=== PATIENT | female | born 2005 | race Caucasian/White ===

== ENCOUNTER 2025-01-06 18:25 | Emergency (ER) | payer BC, SELFPAY ==
[2025-01-06 18:27] VITALS: BP 134/87
--- NOTE | 2025-01-06 19:12 | ED.GENMED ---
History of Present Illness
General
Chief Complaint: Vaginal Bleeding
Source: patient
Exam Limitations: none
Nursing documentation reviewed up to this point in time: agreed with
Course
Vital Signs
Initial and Last Documented VS:
Initial Vital Signs
Temp Pulse Resp BP Pulse Ox
98.5 F 85 18 134/87 99
01/06/25 18:27 01/06/25 18:27 01/06/25 18:27 01/06/25 18:27 01/06/25 18:27
Last Documented Vital Signs
Temp Pulse Resp BP Pulse Ox
98.5 F 85 18 134/87 99
01/06/25 18:27 01/06/25 18:27 01/06/25 18:27 01/06/25 18:27 01/06/25 18:27
ED Attending Note
-
Portions of this chart may have been created with voice recognition software.� Occasional wrong word or��sound alike� substitutions may have occurred due to the inherent limitations of voice recognition software.
Discharge Plan
Interventions
Interventions:
*Risk Screen - Suicide Last Done: 01/06/25 18:27
*General Assessment Last Done: 01/06/25 18:27
*Neglect/Abuse Screening Last Done: 01/06/25 18:27
*ED COVID-19 Vaccine History Last Done: 01/06/25 18:27
Discharge Date and Time
Print Language: YEMENI
[2025-01-06 21:26] LABS: % Basophils 0.4 % (0-2); % Eosinophils 1.4 % (0-6); % Immature Granulocytes 0.3 % (0-0.5); % Lymphocytes 29.1 % (20.5-51.1); % Monocytes 8.4 % (1.7-9.3); % Neutrophils 60.4 % (42.2-75.2); Absolute Eosinophils 0.1 10^3/uL (0-0.7); Absolute Lymphocytes 2.1 10^3/uL (1.2-3.4); Absolute Monocytes 0.6 10^3/uL (0.1-0.6); Absolute Neutrophils 4.4 10^3/uL (1.4-6.5); Hematocrit 42.4 % (37.0-47.0); Hemoglobin 14.6 g/dL (12.0-16.0); Mean Corp Hgb Conc. 34.4 g/dL (33.0-37.0); Mean Corpuscular Hgb 29.2 pg (27.0-31.0); Mean Corpuscular Volume 84.8 fL (81.0-99.0); Mean Platelet Volume 12.5 fL (7.4-10.4); Nucleated Red Blood Cells % 0 %; Platelet Count 174 10^3/uL (130-400); Red Cell Dist. Width 13.2 % (11.5-14.5); White Blood Cell Count 7.2 10^3/uL (4.8-10.8)
[2025-01-06 21:36] LABS: HCG, Serum Qualitative Screen Negative
[2025-01-06 21:40] LABS: Blood Urea Nitrogen 10 mg/dl (7-17); Calcium 10.4 mg/dl (8.4-10.2); Carbon Dioxide 24 mmol/L (22-30); Chloride 106 mmol/L (98-107); Glucose 95 mg/dl (70-99); Potassium 4.1 mmol/L (3.5-5.1); Sodium 142 mmol/L (135-145); eGFR > 60.00
--- NOTE | 2025-01-06 21:59 | ED.GENMED ---
History of Present Illness
General
Chief Complaint: Vaginal Bleeding
Source: patient
Exam Limitations: none
Time Seen by Provider: 01/06/25 19:29
Nursing documentation reviewed up to this point in time: agreed with
History of Present Illness
History of Present Illness:
19-year-old female presenting to the emergency department for evaluation of vaginal bleeding. Patient states that she had a normal menstrual period which ended last week. However�2 to 3 days ago started bleeding again although this time it was
dark brown in color. She also reports feeling as if her IUD may be falling out. She has mild vaginal discomfort. No true abdominal pain. No fevers, vomiting, lightheadedness, shortness of breath.
Patient feels that she has been urinating more frequently. She was seen at a primary care this morning where a urinalysis performed. She was prescribed a dose to cover for possible UTI while culture is pending.
Patient said she has had a Kyleena IUD for the past 3 years. She follows [facility].
Patient is been sexually active with 1 partner for the past 3 years. No concern for STIs/STDs. LMP was last week.
Review of Systems
Review of Systems
Allergies reviewed?: Yes
All Other Systems: ROS reviewed and negative except as documented in HPI and ROS
Phy Exam
Physical Exam
Physical Exam:
Vitals: Patient's vital signs are stable. Afebrile
General: Patient is well appearing, no acute distress. Nontoxic appearing
Skin: Warm and dry, no rashes or lesions
Head: Normocephalic, atraumatic
Eyes: Sclera nonicteric. EOMs intact. No nystagmus.
Throat: Protecting airway
Neck: Normal ROM, no cervical spine tenderness, no meningismus
Cardiac: Regular rate and rhythm, no murmurs.
Pulm: Normal respiratory effort, no wheezes, rales, rhonchi heard on exam.
Abdomen: Abdomen soft. No abdominal tenderness.
Pelvic: External genitalia normal appearing without lesions, ulcerations, or adenopathy. Vaginal vault without lesions or ulcerations. Light brown discharge/minimal bleeding present in vagina. Cervix appears normal to inspection without bleeding or
lesions. No cervical motion tenderness. No visualized foreign body. Bimanual exam without palpable IUD or other foreign body.
Extremities: No evidence of cyanosis or edema
Neuro: AAOx3. Grossly intact.
Psychiatric: Normal affect.
Course
Orders/Labs/Results
Orders:
Orders
01/06/25 20:35
Test Result ONCE
US Pelvis W Transvag Combined Urgent
Reason For Exam: vaginal bleeding, pain; concern for migrated IUD
01/06/25 21:18
Basic Metabolic Panel Urgent
Complete Blood Count/With Diff Urgent
HCG, Serum Qualitative Screen Urgent
Abnormal Lab Results
01/06/25
21:18
MPV 12.5 H fL
(7.4-10.4)
Calcium 10.4 H mg/dl
(8.4-10.2)
01/06/25 21:18
01/06/25 21:18
Vital Signs
Initial and Last Documented VS:
Initial Vital Signs
Temp Pulse Resp BP Pulse Ox
98.5 F 85 18 134/87 99
01/06/25 18:27 01/06/25 18:27 01/06/25 18:27 01/06/25 18:27 01/06/25 18:27
Last Documented Vital Signs
Temp Pulse Resp BP Pulse Ox
98.2 F 74 18 118/86 98
01/06/25 23:35 01/06/25 23:35 01/06/25 23:35 01/06/25 23:35 01/06/25 23:35
MDM/Problems Addressed
Differential Diagnosis Includes:
Not limited to: Malpositioned IUD, PID, cervicitis, vaginitis, BV, UTI, etc.
MDM/Problems Addressed:
19-year-old female presenting with abnormal vaginal bleeding and mild pelvic pain for the past few days. No fevers, chills, abdominal pain, or vomiting. No concern for STDs/STIs. Vital stable on arrival. Patient is afebrile. Physical exam as
above. Patient very well-appearing, no apparent distress. Benign abdominal exam. Speculum and bimanual pelvic exam were performed which show minimal bleeding from cervical os without any cervical motion tenderness. No signs of cervicitis on
exam. No visualized or palpated IUD/foreign body in vaginal vault. Labs were obtained which show no clinically significant abnormalities. Hemoglobin is normal at 14.6. Pelvic ultrasound was obtained with concern of migrated IUD which shows
structure believed to be IUD in place in the lower uterine segment. Ultimately�suspect patient's symptoms likely secondary to malpositioned IUD. No evidence of ongoing infection. test was negative. Patient in no current discomfort and
stable for discharge home with close BUSINESS APPLICATIONS ANALYST follow-up outpatient. Patient does [facility]. Patient will start antibiotics as prescribed by PCP earlier today for possible UTI. Patient given copy of ultrasound report upon
discharge. Return precautions discussed including any signs of infection. Patient comfortable w/ plan.
Chronic conditions affecting care:
N/A
Acute Exacerbation and/or Progression of Chronic Illness:
N/A
*Radiology
Radiology exam reviewed: radiology read reviewed
*Pulse Oximetry
Patient hypoxic: no
*EKG
Interpreted by ED Provider?: NA
*Accounts Receivable Bookkeeper Interpretation
Rate: Accounts Receivable Bookkeeper- N/A
*Critical Care Note
Total Time (30-74mins, 75-104mins- exclusive of procedures): Not Applicable
ED Attending Note
-
Portions of this chart may have been created with voice recognition software.� Occasional wrong word or��sound alike� substitutions may have occurred due to the inherent limitations of voice recognition software.
Discharge Plan
Departure
Patient Disposition: Home (Routine Discharge)
Date of Disposition: 01/06/25
Time of Disposition: 23:18
Patient with high blood pressure during this ER visit?: Yes
Condition: Good
Covid-19: Not Applicable
Discharge Problem:
Abnormal vaginal bleeding, Malpositioned intrauterine device (IUD)
Instructions: Bleeding Between Periods
Referrals:
Greg Bernard MD [Active] - Next open appointment
Kimberly Smith MD [Family Provider] -
Activity Restrictions/Additional Instructions:
Return to the emergency department with any persistent heavy bleeding, fevers/chills, severe abdominal/pelvic pain, lightheadedness/dizziness, worsening current symptoms, or any other concern
-As discussed your hemoglobin was normal on your labs today. You had no elevated white blood cell count. Your pelvic ultrasound did show your IUD in the uterus although it may be malpositioned. Your IUD may not be effective right now as it may be
malpositioned�you should abstain from unprotected sex until seen by BUSINESS APPLICATIONS ANALYST.
-You can take Tylenol and/or Motrin as needed for discomfort.
-As discussed�is important you follow-up with your BUSINESS APPLICATIONS ANALYST as soon as possible for further evaluation/management. You may need to have your IUD removed.
Monitor your symptoms closely and return to the emergency department with any acute worsening/new symptoms or any signs of infection
Interventions
Interventions:
*Risk Screen - Suicide Last Done: 01/06/25 18:27
*General Assessment Last Done: 01/06/25 18:27
*Neglect/Abuse Screening Last Done: 01/06/25 18:27
*ED- Fall Risk Assessment Last Done: 01/06/25 19:40
*ED COVID-19 Vaccine History Last Done: 01/06/25 18:27
*Nursing Disposition Last Done: 01/06/25 23:36
ED-Female Genitourinary Assessment Last Done: 01/06/25 19:40
Discharge Date and Time
Discharge Date/Time: 01/06/25 23:36
Print Language: ANGOLAN
[2025-01-06 23:35] VITALS: BP 118/86
== END 2025-01-06 23:36 | disposition home or self-care (01) ==
LOC: EMR 18:25
PROVIDERS: Physician Assistant; EMERGENCY PHYSICIAN Emergency Medicine; FAMILY PHYSICIAN Family Medicine; REFERRING PHYSICIAN Obstetrics & Gynecology
DX: T83.32XA Displacement of intrauterine contraceptive device, initial encounter (principal); Y92.9 Unspecified place or not applicable
CPT/HCPCS: 99284; 76830; 76856; 80048; 84703; 85025